=== PATIENT | male | born 1955 | race Caucasian/White ===

== ENCOUNTER 2018-07-23 16:19 | Inpatient (IN) ==
--- NOTE | 2018-07-23 16:48 | Diag Imaging Result Doc PS360 ---
EXAM: CT HEAD W/O CONTRAST INDICATION: STROKE LIKE SYMPTOMS TECHNIQUE: This exam was performed using automated exposure control, adjustment of mA or kV according to patient size, and/or use of iterative reconstruction technique. COMPARISON: 11/02/2015 FINDINGS: There is stable brain atrophy and patchy low attenuation in the periventricular and subcortical white matter suggesting mild microangiopathy. There is no definite acute infarct given the limited sensitivity of CT versus MRI. There is no discrete intracranial mass, mass effect, or intracranial hemorrhage. The surrounding soft tissues and bony structures are essentially unremarkable. IMPRESSION: Stable chronic appearing changes but no definite acute intracranial pathology by CT. Electronically signed by Bassam Andrew 07/23/2018 4:46 PM
[2018-07-23 17:45] LABS: URINE SOURCE CLEAN CATCH
--- NOTE | 2018-07-23 17:45 | Diag Imaging Result Doc PS360 ---
EXAM: CHEST-PORTABLE INDICATION: stroke like symptoms TECHNIQUE: One view COMPARISON: 10/09/2017 FINDINGS: The lungs are grossly clear. There is no discrete pleural fluid collection or pneumothorax. The cardiomediastinal silhouette and central vasculature are grossly unremarkable. IMPRESSION: No evidence of acute pathology by plain radiograph. Electronically signed by Bassam Andrew 07/23/2018 5:43 PM
[2018-07-23 17:55] LABS: BILIRUBIN URINE NEGATIVE (NEGATIVE); BLOOD URINE NEGATIVE (NEGATIVE); COLOR YELLOW; GLUCOSE URINE 70 mg/dL (NEGATIVE); KETONE URINE NEGATIVE (NEGATIVE); LEUKOCYTES URINE NEGATIVE (NEGATIVE); NITRITE URINE NEGATIVE (NEGATIVE); PH URINE 5.5; PROTEIN URINE NEGATIVE (NEGATIVE); TURBIDITY URINE CLEAR (CLEAR); UROBILINOGEN URINE NORMAL (NORMAL)
[2018-07-23 17:57] LABS: UR EPITHELIAL CELLS <10 /HPF (<10); URINE BACTERIA NEGATIVE /HPF; URINE RBC <10 /HPF (<10); URINE WBC <10 /HPF (<10)
[2018-07-23 17:57] LABS: BASO# 0.03 X1000 (0.0-0.2); BASO% 0.3 % (0.0-0.8); EOS# 0.24 X1000 (0.0-0.7); EOS% 2.3 % (0.0-10.0); HEMATOCRIT 51.5 % (42.0-52.0); HEMOGLOBIN 18.5 g/dL (14.0-18.0); IMM GRAN# 0.02 X1000 (0.0-0.04); IMM GRAN% 0.2 % (0.0-0.5); LYMPH# 2.61 X1000 (1.2-3.4); LYMPH% 25.5 % (20.5-51.1); MCH 29.4 PG (27-31); MCHC 35.9 g/dL (33-37); MCV 81.9 FL (81-99); MONO# 0.94 X1000 (0.11-0.59); MONO% 9.2 % (1.7-9.3); MPV 11.3 FL (7.4-10.4); NEUT# 6.41 X1000 (1.4-6.5); NEUT% 62.5 % (42.2-75.2); PLT 204 X1000 (130-400); RBC 6.29 XMIL (4.7-6.1); RDW 13.2 % (11.5-14.5); WBC 10.25 X1000 (4.8-10.8)
--- NOTE | 2018-07-23 18:01 | PROVIDER DOCUMENTATION ---
This chart was entered by Vanessa Stahl Scribe, acting as scribe for Huey Dee DO. HPI-Neurological Disorder - General Source: patient, family - History of Present Illness-Neuro Severity: reports: mild Onset/Duration: reports: 24 hours ago, 3 days ago Timing: reports: still present Context: reports: impaired speech, other (dizzy) Character of Altered Mental Status: reports: N/A Any recent trauma/injury?: reports: none Character of Deficits: reports: impaired speech New weakness or altered sensation location:: reports: none Cognitive Baseline: alert, oriented x3 Gait Baseline: walks without assistance Associated Symptoms: reports: dizziness, slurred speech Similar Symptoms Previously?: Yes (hx CVA) Recently seen or treated by another doctor?: No <Huey Dee - Last Filed: 07/23/18 18:01> <Bonnie Tejada - Last Filed: 07/23/18 20:13> - General Chief Complaint: Stroke-Like Symptoms Stated Complaint: STROKE LIKE SYMPTOMS Time Seen by Provider: 07/23/18 16:27 Allergies/Adverse Reactions: Patient Allergies Allergy/AdvReac Type Severity Reaction Status Date / Time acetaminophen [From [place]] Allergy ITCHING Verified 07/23/18 16:54 hydrocodone bitartrate * Allergy ITCHING Verified 07/23/18 16:54 [From [place]] Home Medications: Home Medication List Medication Instructions Recorded Confirmed Last Taken Type Duloxetine HCl 1 tab PO DAILY 11/24/16 07/23/18 11/24/16 History Glimepiride [Amaryl] 4 mg PO DAILY #30 tab 02/06/17 07/23/18 Unknown Rx ATORVAstatin [Lipitor] 40 mg PO DAILY 07/23/18 07/23/18 Unknown History Gabapentin 1 cap PO QHS 07/23/18 07/23/18 Unknown History Lisinopril/Hydrochlorothiazide 1 tab PO DAILY 07/23/18 07/23/18 Unknown History [Lisinopril-Hctz 20-12.5 mg Tab] Meclizine HCl [Antivert] 25 mg PO Q6H PRN 07/23/18 07/23/18 Unknown History Metoprolol Succinate 1 tab PO DAILY 07/23/18 07/23/18 Unknown History Phenylephrine HCl [Sudafed PE] 10 mg PO PRN PRN 07/23/18 07/23/18 Unknown History Sildenafil Citrate 1 tab PO PRN 07/23/18 07/23/18 Unknown History Sitagliptin Phosphate [Januvia] 1 tab PO DAILY 07/23/18 07/23/18 Unknown History - History of Present Illness-Neuro Nature of Presenting Problem: 62 y/o male presents to ED with slurred speech onset yesterday and dizziness onset 3 days ago. Pt reports he saw PCP for the dizziness 2 days ago and was given antivert. Pt states antivert has not improved his symptoms. Pt reports hx CVA. Pt denies any other symptoms. Pt is alert and oriented x 3. (uHey Dee) Review of Systems - Adult - REVIEW OF SYSTEMS - ADULT Constitutional: denies: chills, fever Eyes: reports: no symptoms reported Ears, Nose, Mouth & Throat: reports: no symptoms reported Cardiovascular: denies: chest pain, palpitations Respiratory: denies: cough, shortness of breath Gastrointestinal: denies: abdominal pain, diarrhea, nausea, vomiting Genitourinary: reports: no symptoms reported Musculoskeletal: denies: back pain, joint pain Integumentary: reports: no symptoms reported Neurological: reports: dizziness/vertigo, slurred speech. denies: seizure Psychiatric: reports: no symptoms reported Endocrine: reports: no symptoms reported Hematologic/Lymphatic: reports: no symptoms reported Allergic/Immunologic: reports: no symptoms reported All Other Systems: Reviewed and Negative <Huey Dee - Last Filed: 07/23/18 18:01> Past History - Adult - PAST MEDICAL HISTORY-ADULT Review of Records: reports: Old Records Reviewed, Nursing Assessment Review, Medications Reviewed Major Childhood Illnesses: reports: denies history Cardiovascular: reports: HTN, hyperlipidemia Respiratory: reports: denies history Gastrointestinal: reports: denies history, GERD Obstetrical/Gynecological: reports: denies history Genitourinary: reports: denies history Musculoskeletal: reports: denies history, other (gout; carpal tunnel) Neurological: reports: CVA (L sided deficits) Psychiatric: reports: anxiety, depression Endocrine/Immune: reports: Diabetes Diabetes Type: Type 2 Other Conditions: reports: denies history - PRIOR SURGERIES/PROCEDURES Surgical/Procedure History: reports: tonsillectomy, other (eye; esophagus) - IMMUNIZATION STATUS Childhood Immunizations: See Nurse Assessment Flu Vaccine: See Nurse Assessment - FAMILY HISTORY Family History: reviewed, not pertinent - SOCIAL HISTORY Smoking: non-smoker Substance Use: none/never Alcohol Use Frequency: rarely Living Situation: family <Huey Dee - Last Filed: 07/23/18 18:01> Physical Exam- Neurological - Physical Exam-Neuro Initial Vital Signs Reviewed: Yes General Appearance: appears well, alert, no apparent distress HENMT: normocephalic/atraumatic, moist mucous membranes, normal ENT inspection Head Injury: no evidence of injury Neck: non-tender, full range of motion Respiratory: chest non-tender, lungs clear, normal breath sounds Cardiovascular: normal peripheral pulses, regular rate, rhythm Abdominal Exam: normal bowel sounds, non tender, soft Extremity: normal range of motion, non-tender, normal gait, normal inspection director cardiology Exam: normal hearing, PERRL, abnormal speech (slurred) Coordination/Gait: normal finger to nose, normal gait Motor/Sensory: no motor deficit, no sensory deficit, no pronator drift Neurologic: director cardiology II-XII nml as tested (Intact), grossly normal, no motor/sensory deficits Integumentary: normal color, warm/dry Psych/Mental Status: normal mood/affect, normal thought content, normal thought process <Huey Dee - Last Filed: 07/23/18 18:01> Progress - PLAN OF CARE/RESULTS Result Diagrams: 07/23/18 17:21 - EKG 1 Time of EKG reading by physician:: 17:47 EKG Read and Signed by:: Huey Dee EKG Interpretation (*Must complete 3 of following elements*): Abnormal Rate: 82 Rhythm: Sinus w/ occasional PVCs [place]: normal QRS: PVC's, other (L anterior fascicular block; inferior infarct) OR Interval: normal ST Wave: normal - XRAY 1 XRAY Study: Chest Impression: Normal (FINDINGS: The lungs are grossly clear. There is no discrete pleural fluid collection or pneumothorax. The cardiomediastinal silhouette and central vasculature are grossly unremarkable. IMPRESSION: No evidence of acute pathology by plain radiograph. Electronically signed by Bassam Andrew 07/23/2018 5:43 PM) - CT/MRI 1 CT Study: Head Impression: Normal (FINDINGS: There is stable brain atrophy and patchy low attenuation in the periventricular and subcortical white matter suggesting mild microangiopathy. There is no definite acute infarct given the limited sensitivity of CT versus MRI. There is no discrete intracranial mass, mass effect, or intracranial hemorrhage. The surrounding soft tissues and bony structures are essentially unremarkable. IMPRESSION: Stable chronic appearing changes but no definite acute intracranial pathology by CT. Electronically signed by Bassam Andrew 07/23/2018 4:46 PM) <Huey Dee - Last Filed: 07/23/18 18:01> - PLAN OF CARE/RESULTS Result Diagrams: 07/23/18 17:21 07/23/18 17:21 - CONSULTS/PCP/HOSPITALIST Notification #1 *Consult/PCP/Hospitalist*: Dr De Dios Consult Disposition: Admit (OK to admit for observation) <Bonnie Tejada - Last Filed: 07/23/18 20:13> - PLAN OF CARE/RESULTS Progress/Plan/Lab Results: Vital Signs - 8 hr 07/23/18 16:21 07/23/18 16:41 07/23/18 17:03 Temperature 96.7 F L Pulse Rate 95 H 87 Respiratory Rate 16 14 Blood Pressure 147/100 131/91 144/87 O2 Sat by Pulse Oximetry 97 97 96 07/23/18 17:33 07/23/18 18:03 07/23/18 18:33 Temperature Pulse Rate 82 85 92 H Respiratory Rate 24 22 24 Blood Pressure 137/93 131/78 123/86 O2 Sat by Pulse Oximetry 97 95 97 07/23/18 19:03 Temperature Pulse Rate 88 Respiratory Rate 21 Blood Pressure 102/76 O2 Sat by Pulse Oximetry 96 Laboratory Results - last 24 hr 07/23/18 07/23/18 07/23/18 16:29 17:21 17:21 WBC 10.25 RBC 6.29 H Hgb 18.5 H Hct 51.5 MCV 81.9 MCH 29.4 MCHC 35.9 RDW Std Deviation 13.2 Plt Count 204 MPV 11.3 H Immature Gran % (Auto) 0.2 Neut % (Auto) 62.5 Lymph % (Auto) 25.5 [place] % (Auto) 9.2 Eos % (Auto) 2.3 Baso % (Auto) 0.3 Immature Gran # (Auto) 0.02 Neut # (Auto) 6.41 Lymph # (Auto) 2.61 [place] # (Auto) 0.94 H Eos # (Auto) 0.24 Baso # (Auto) 0.03 PT INR PTT (Actin FS) Sodium 139 Potassium 4.3 Chloride 101 Carbon Dioxide 24 L Anion Gap 14 BUN 17 Creatinine 1.1 Estimated GFR/1.73 m2 > 60 BUN/Creatinine Ratio 15 Glucose 209 H POC Glucose 241 H Calculated Osmolality 285 Calcium 10.0 Magnesium Total Bilirubin 0.51 AST 12 ALT 19 Alkaline Phosphatase 72 Troponin T Total Protein 7.4 Albumin 4.3 Globulin 3.1 Albumin/Globulin Ratio 1.4 Urine Source Urine Color Urine Turbidity Urine pH Ur Specific [place] Urine Protein Ur Glucose (Stick) Ur Ketones (Stick) Urine Blood Urine Nitrite Urine Bilirubin Urobilinogen Dipstick Urine Leukocytes Urine WBC (Auto) Urine RBC (Auto) U Epithel Cells (Auto) Urine Bacteria (Auto) 07/23/18 07/23/18 07/23/18 17:21 17:21 17:21 WBC RBC Hgb Hct MCV MCH MCHC RDW Std Deviation Plt Count MPV Immature Gran % (Auto) Neut % (Auto) Lymph % (Auto) [place] % (Auto) Eos % (Auto) Baso % (Auto) Immature Gran # (Auto) Neut # (Auto) Lymph # (Auto) [place] # (Auto) Eos # (Auto) Baso # (Auto) PT 13.0 INR 0.91 PTT (Actin FS) 29.9 Sodium Potassium Chloride Carbon Dioxide Anion Gap BUN Creatinine Estimated GFR/1.73 m2 BUN/Creatinine Ratio Glucose POC Glucose Calculated Osmolality Calcium Magnesium 1.9 Total Bilirubin AST ALT Alkaline Phosphatase Troponin T < 0.010 Total Protein Albumin Globulin Albumin/Globulin Ratio Urine Source Urine Color Urine Turbidity Urine pH Ur Specific [place] Urine Protein Ur Glucose (Stick) Ur Ketones (Stick) Urine Blood Urine Nitrite Urine Bilirubin Urobilinogen Dipstick Urine Leukocytes Urine WBC (Auto) Urine RBC (Auto) U Epithel Cells (Auto) Urine Bacteria (Auto) 07/23/18 07/23/18 17:40 17:42 WBC RBC Hgb Hct MCV MCH MCHC RDW Std Deviation Plt Count MPV Immature Gran % (Auto) Neut % (Auto) Lymph % (Auto) [place] % (Auto) Eos % (Auto) Baso % (Auto) Immature Gran # (Auto) Neut # (Auto) Lymph # (Auto) [place] # (Auto) Eos # (Auto) Baso # (Auto) PT INR PTT (Actin FS) Sodium Potassium Chloride Carbon Dioxide Anion Gap BUN Creatinine Estimated GFR/1.73 m2 BUN/Creatinine Ratio Glucose POC Glucose 153 H Calculated Osmolality Calcium Magnesium Total Bilirubin AST ALT Alkaline Phosphatase Troponin T Total Protein Albumin Globulin Albumin/Globulin Ratio Urine Source CLEAN CATCH Urine Color YELLOW Urine Turbidity CLEAR Urine pH 5.5 Ur Specific [place] 1.020 Urine Protein NEGATIVE Ur Glucose (Stick) 70 A Ur Ketones (Stick) NEGATIVE Urine Blood NEGATIVE Urine Nitrite NEGATIVE Urine Bilirubin NEGATIVE Urobilinogen Dipstick NORMAL Urine Leukocytes NEGATIVE Urine WBC (Auto) <10 Urine RBC (Auto) <10 U Epithel Cells (Auto) <10 Urine Bacteria (Auto) NEGATIVE Orders Category Date Time Status Cardiac Monitoring DIRECTED Care 07/23/18 17:00 Active Finger Stick Blood Sugar (ED) DIRECTED Care 07/23/18 17:00 Active Misc. NRSG Communication Order DIRECTED Care 07/23/18 17:00 Active Saline Loc NOW Care 07/23/18 17:00 Active Update & Confirm Home Medicati ROUTINE Care 07/23/18 19:57 Active CHEST-PORTABLE [RAD] Stat Exams 07/23/18 17:[address] HEAD W/O CONTRAST [CT] Stat Exams 07/23/18 16:25 Completed CBC WITH ELECTRONIC DIFF [HEME] Stat Lab 07/23/18 17:21 Completed COMPREHENSIVE METABOLIC PANEL [CHEM] Stat Lab 07/23/18 17:21 Completed MAGNESIUM [CHEM] Stat Lab 07/23/18 17:21 Completed PROTIME WITH INR [COAG] Stat Lab 07/23/18 17:21 Completed PTT [COAG] Stat Lab 07/23/18 17:21 Completed TROPONIN T Stat Lab 07/23/18 17:21 Completed URINALYSIS W/POSS RFLX CULT [URINALYSIS] Stat Lab 07/23/18 17:42 Completed URINE DRUG SCREEN Stat Lab 07/23/18 17:42 Received EKG [EKG] Stat Ther 07/23/18 17:00 Ordered Transfer/Admit Order [TRANSFER] Routine Transfer 07/23/18 19:58 Ordered Departure <Huey Dee - Last Filed: 07/23/18 18:01> - Departure Date of Disposition Decision: 07/23/18 Time of Disposition Decision: 19:34 Certified Medical Emergency: Emergent - Critical Care Note This patient required my direct & personal management of CC.: No <Bonnie Tejada - Last Filed: 07/23/18 20:13> - Departure DIAGNOSIS: Slurred speech Disposition: ADMITTED INPATIENT 09 Condition: Good Referrals and Follow-Ups: Shannon An CRNP [Primary Care Provider] - Attestation - Physician/ JAMES Attestation Patient care was provided by Advanced Practice Provider:: No The physician spent face to face time with patient:: Yes Advanced Practice Provider documentation review:: Supervising physician onsite and consulted in the evaluation and care of this patient. The physician did have a face to face encounter with the patient. <Huey Dee - Last Filed: 07/23/18 18:01> - Physician/ JAMES Attestation Patient care was provided by Advanced Practice Provider:: No The physician spent face to face time with patient:: Yes Advanced Practice Provider documentation review:: Supervising physician onsite and consulted in the evaluation and care of this patient. The physician did have a face to face encounter with the patient. <Bonnie Tejada - Last Filed: 07/23/18 20:13> - NIH Stroke Scale Level of Consciousness: 0-Alert LOC Questions (ask month and age): 2-Both Incorrect LOC Commands (ask to open & close eyes;make a fist, let go): 2-Both Incorrect Best Gaze (horizontal eye movement): 0-Normal Visual (use finger movement, counting or visual threat): 0-No Visual Loss Facial Palsy (show teeth or raise eyebrows & close eyes tght: 0-Symmetrical Movement Motor Function-left arm: 0-Normal Motor Function-right arm: 0-Normal Motor Function-left le-Normal Motor Function-right le-Normal Limb Ataxia(hoelaq-[id number]-[id number], or heel to barriga): 0-No Ataxia Sensory(pin prick to face,arms,trunk,legs-compare side/side): 0-No Ataxia Best Language(name item/read sentence.Ex-Down to Earth): 1-Mild to Moderate Aphasia Dysarthria(Pt read words or say words Ex.Mama,Tip-Top,Thanks: 1-Mild-Mod Slurring Words Extinction and Inattention: 0-Normal Modified [place] Score Criteria: 2-slight disability <Huey Dee - Last Filed: 07/23/18 18:01> This chart was documented by the indicated scribe, (Vanessa Stahl, Marcelino) and accurately reflects the services I performed and decisions made by , Huey Dee DO, as attested by the provider's signature.
[2018-07-23 18:05] LABS: AGAP 14; ALB/GLOB RATIO 1.4; ALBUMIN 4.3 g/dL (3.5-5.0); ALKALINE PHOSPHATASE 72 U/L (32-122); BUN 17 mg/dL (8-22); CHLORIDE 101 mmol/L (98-107); COSMO 285; CREATININE 1.1 mg/dL (0.7-1.2); ESTIMATED GFR > 60; GLUCOSE 209 mg/dL (70-104); GOT 12 U/L (10-34); GPT 19 U/L (10-44); POTASSIUM 4.3 mmol/L (3.5-5.1); SODIUM 139 mmol/L (136-145); TCO2 24 mmol/L (25-35); TOTAL BILIRUBIN 0.51 mg/dL (0.20-1.00); TOTAL PROTEIN 7.4 g/dL (6.3-8.3)
[2018-07-23 18:15] LABS: INR 0.91
[2018-07-23 18:27] LABS: PTT 29.9 Seconds (22.3-41.8)
[2018-07-23 20:17] LABS: UR AMPHETAMINES QUAL NONE DETECTED (NONE DETECT); UR BARBITUATES QUAL NONE DETECTED (NONE DETECT); UR BENZODIAZEPIN QUAL NONE DETECTED (NONE DETECT); UR CANNABINOIDS QUAL NONE DETECTED (NONE DETECT); UR COCAINE QUAL NONE DETECTED (NONE DETECT); UR METHADONE QUAL NONE DETECTED (NONE DETECT); UR OPIATES QUAL NONE DETECTED (NONE DETECT); UR OXYCODONE QUAL NONE DETECTED (NONE DETECT); UR PCP QUAL NONE DETECTED (NONE DETECT)
[2018-07-23] MEDS ORDERED: ZOFRAN IV PRN (20:38)
[2018-07-23] MEDS ORDERED: TYLENOL PO PRN (20:38)
[2018-07-23 20:57] LABS: HEMOGLOBIN A1C 7.4 % (4.8-6.0)
[2018-07-23] MEDS ORDERED: NS 500 ML IV ONE (21:22)
[2018-07-23] MEDS: HUMALOG SUBQ SCH (22:11)
[2018-07-23] MEDS: LOVENOX SUBQ SCH (22:11)
[2018-07-23] MEDS: LIPITOR PO SCH (22:11)
--- NOTE | 2018-07-23 22:45 | HISTORY AND PHYSICAL ---
CHIEF COMPLAINT: Slurred speech. PRIMARY CARE PROVIDER: Shannon An. HISTORY OF PRESENT ILLNESS: A 62-year-old male with a history of CVA, hypertension, diabetes mellitus type 2, hyperlipidemia, esophageal strictures and intermittent angina, comes in after having dizziness for the past 3 days and slurring of his speech for the past day and a half. Apparently saw his primary care provider 2 days ago about the dizziness and she gave him something for vertigo. They stated that the slurring of speech has continued so he came into the emergency room to be evaluated. A CT showed chronic microvascular changes, but no acute intracranial process. He will be admitted in observation status for further evaluation and treatment. PAST MEDICAL HISTORY: See HPI. PREVIOUS SURGICAL HISTORY: Denies. ALLERGIES: [place]. HOME MEDICATIONS: Neurontin 400 mg p.o. at bedtime. Lipitor 40 mg p.o. daily, however, the patient denies that he has been taking this. Lisinopril/hydrochlorothiazide 20/12.5, meclizine 25 p.o. q.6 p.r.n., metoprolol 25 mg 1 p.o. daily, Sudafed 10 mg p.o. p.r.n., sildenafil 100 mg p.o. p.r.n., Januvia 100 mg p.o. daily, duloxetine 60 mg p.o. daily, Amaryl 4 mg p.o. daily. SOCIAL HISTORY: No alcohol, tobacco or illicit drugs. Is retired. FAMILY HISTORY: Diabetes mellitus type 2, and cancer and heart disease in his father but he did not pass away until he was 81. REVIEW OF SYSTEMS: Fourteen point review of systems conducted with the patient. Pertinent positives listed above in the HPI. All other systems reviewed and found to be negative. PHYSICAL EXAMINATION: VITAL SIGNS: Temperature 97.7, pulse 80, respirations 18, blood pressure 107/84, oxygen saturation 97% on room air. GENERAL: Pleasant 62-year-old male lying in the ER stretcher, answers all questions appropriately, is alert and oriented times 3. HEENT: Head is atraumatic, normocephalic. Pupils equal, round, react to light. Extraocular eye movement intact. Sclerae are anicteric. Conjunctivae is pink. Oral mucosa is moist. NECK: Supple. No JVD. No thyromegaly. Trachea is midline. No cervical lymphadenopathy. CARDIAC: S1, S2 appreciated. No murmurs, gallops, rubs. LUNGS: Clear to auscultation bilaterally. No rhonchi, wheezes or rales. Symmetrical rise and fall with respirations. ABDOMEN: Soft, nondistended, nontender. Bowel sounds present all 4 quadrants, normoactive. No pulsatile mass. No organomegaly. EXTREMITIES: No clubbing, cyanosis or edema. Two-plus pedal pulses bilaterally. GENITOURINARY: No bladder distention. Patient voids. Otherwise deferred. NEUROLOGICAL: Alert and oriented times 3. Cranial nerves 2 through 12 appear to be grossly intact. Patient does have very mild left-sided weakness compared to right from previous CVA, but again, it is almost not noticeable. The patient also feels that he is slurring his speech. However, I could not tell that on examination. DIAGNOSTIC DATA: CT of the head shows chronic microvascular changes. Chest x- ray: No acute process. LABORATORY DATA: Hemoglobin 18.5. Hematocrit 51.5. Coagulation studies within normal limits. BUN 17. Creatinine 1.1. Glucose 209. Hemoglobin A1c 7.4. Urine unremarkable. Toxicology screen negative. ASSESSMENT AND PLAN: 1. Transient ischemic attack versus cerebrovascular accident. A CT scan just shows chronic changes. We will order MRI, echo and carotid Doppler tomorrow. Direct lipid profile. Start patient back on atorvastatin. 2. Hypertension. Hold antihypertensives. Allow for permissive hypertension until CVA is ruled out. These can be restarted when appropriate. 3. Diabetes mellitus type 2. Hold oral medications. Start on sliding scale insulin with fingerstick blood sugars q.a.c and at bedtime. Patient's hemoglobin A1c is elevated. His medications may need to be changed slightly. 4. Mild fluid volume depletion. Give a 500 mL bolus and then normal saline at 75 mL an hour. Further recommendations per patient clinical course. Dictated by JULIAN Barnes for Carlos De Dios MD I have performed a face to face diagnostic evaluation. Labs and Imaging- reviewed. Exam Chest- clear, Neuro- speech sluggish. A/P- TIA- r/o CVA- Admit, neuroconsult, stroke work up. MRI of Brain Dr. De Dios cc: JULIAN Barnes MD Stephanie Weems, CRNP MTDD
[2018-07-24] MEDS: NS 1,000 ML IV SCH (00:07)
[2018-07-24 06:53] LABS: BASO# 0.02 X1000 (0.0-0.2); BASO% 0.2 % (0.0-0.8); EOS# 0.28 X1000 (0.0-0.7); HEMATOCRIT 49.4 % (42.0-52.0); HEMOGLOBIN 17.6 g/dL (14.0-18.0); IMM GRAN# 0.03 X1000 (0.0-0.04); IMM GRAN% 0.3 % (0.0-0.5); LYMPH# 2.85 X1000 (1.2-3.4); MCH 29.7 PG (27-31); MCHC 35.6 g/dL (33-37); MCV 83.4 FL (81-99); MONO# 0.98 X1000 (0.11-0.59); MONO% 10.7 % (1.7-9.3); MPV 11.2 FL (7.4-10.4); NEUT# 5.03 X1000 (1.4-6.5); NEUT% 54.8 % (42.2-75.2); PLT 189 X1000 (130-400); RBC 5.92 XMIL (4.7-6.1); RDW 13.2 % (11.5-14.5); WBC 9.19 X1000 (4.8-10.8)
[2018-07-24 07:10] LABS: AGAP 12; BUN 14 mg/dL (8-22); CHLORIDE 103 mmol/L (98-107); COSMO 283; ESTIMATED GFR > 60; GLUCOSE 115 mg/dL (70-104); POTASSIUM 4.1 mmol/L (3.5-5.1); SODIUM 141 mmol/L (136-145); TCO2 26 mmol/L (25-35)
[2018-07-24] MEDS: HUMALOG SUBQ SCH ×4 (07:32→23:01)
[2018-07-24] MEDS ORDERED: ATIVAN IV PRN (10:21)
[2018-07-24] MEDS: LIPITOR PO SCH (11:47)
[2018-07-24] MEDS: CYMBALTA PO SCH (11:47)
[2018-07-24] MEDS: ASPIRIN PO SCH (11:48)
--- NOTE | 2018-07-24 13:03 | Diag Imaging Result Doc PS360 ---
EXAM: MRI BRAIN W/O CONTRAST HISTORY: tia/cva TECHNIQUE: MRI brain without contrast. Axial, sagittal, and coronal images obtained in multiple sequences. COMPARISON: CT from 07/23/2018 FINDINGS: There is a focal area of increased signal in the left periventricular location measuring approximately 9 x 16 mm consistent with a recent infarct. There are minimal chronic microvascular ischemic changes. No mass or midline shift. No hydrocephalus. Normal orbits. No sinus opacification and no air-fluid levels. IMPRESSION: Small recent left parietal infarct. This report was discussed with nurse Jc on the fourth floor on 07/24/2018 at 1:00 PM and was readback. Electronically signed by Sourav Godinez 07/24/2018 1:01 PM
[2018-07-24] MEDS: TOPROL XL PO SCH (15:07)
--- NOTE | 2018-07-24 15:13 | PROGRESS NOTE ---
DATE: 07/24/2018 INTERVAL HISTORY: The patient still feels that he has to concentrate to get words out clearly. No new neurologic symptoms or new complaints. No acute events overnight. REVIEW OF SYSTEMS: Twelve point review of systems negative except as per interval history. LABS: CBC unremarkable. Basic metabolic panel unremarkable aside from glucose 115 to 168. Triglycerides 201, LDL 84, HDL 39. IMAGING: Brain MRI with small recent left parietal infarct. VITALS: T-max 98.6, pulse 80, respirations 18, blood pressure 112/80, O2 sat 99% on room air. PHYSICAL EXAMINATION: General: No acute distress. Vitals: As above. HEENT: Normocephalic, atraumatic. Moist mucous membranes. No cervical adenopathy. Cardiovascular: Regular rate and rhythm. No murmurs, rubs or gallops. Pulmonary: Clear to auscultation bilaterally. No wheezing, rales or rhonchi. Abdomen: Soft, nontender, nondistended. Bowel sounds positive. Extremities: Peripheral pulses intact. No clubbing, cyanosis or edema. Neurologic: Speech is slightly slow, but clear. Cranial nerves appeared grossly intact. No facial asymmetry. Pupils equal, round, reactive to light. Subtle left-sided weakness stable from previous. Psychiatric: Normal mood and affect. Awake, alert, oriented x 3. Skin: No new rashes or lesions identified. ASSESSMENT AND PLAN: 1. CVA. The patient complaining of subtle slurring of speech. Speech was pretty clear, but he does seem to have to stop and think about the word and focus on enunciating. The patient placed on aspirin and statin. Carotid Dopplers pending. Speech therapy evaluation pending. Likely discharge home tomorrow if no other major pathology is identified. 2. Hypertension. Allowing permissive hypertension for today. We will likely restart home medications tomorrow. 3. Diabetes, reasonable control of blood sugar on current regimen. Continue to monitor. 4. Hyperlipidemia. Has been on statin in the past but has not taken Reglan for quite some time. Restarted on atorvastatin. 5. History of esophageal stricture. No dysphagia currently.
--- NOTE | 2018-07-24 16:46 | ECHO REPORT ---
ORDER DATE: 07/24/2018 ECHOCARDIOGRAPHIC MEASUREMENTS: 1. Interventricular septum 1.1. 2. Left ventricular posterior wall 1.1. 3. Diastolic diameter 4.1. 4. Left atrium 3. 5. Aorta 3.6. SUMMARY: 1. Tricuspid valve was normal. 2. Aortic valve leaflets are trileaflet. 3. Pulmonic valve was normal . 4. Mitral valve was normal. 5. Normal left ventricular cavity size. 6. Estimated ejection fraction of 60%. 7. There is mild mitral regurgitation. 8. Mild diastolic dysfunction. 9. There is peak velocity across the aortic valve less than 2 m/sec. 10. There is no aortic stenosis or regurgitation. 11. There is mild tricuspid regurgitation. 12. Peak velocity across the tricuspid valve was 2.2 m/sec. 13. There is no pericardial effusion or obvious intracardiac mass or thrombus seen. cc: MD Isma Gerber CRNP
[2018-07-24] MEDS: LOVENOX SUBQ SCH (21:43)
[2018-07-25] MEDS: NS 1,000 ML IV SCH (02:04)
[2018-07-25] MEDS: HUMALOG SUBQ SCH ×2 (06:50→11:46)
[2018-07-25] MEDS: TOPROL XL PO SCH (08:57)
[2018-07-25] MEDS: ASPIRIN PO SCH (08:57)
[2018-07-25] MEDS: LIPITOR PO SCH (08:57)
[2018-07-25] MEDS: CYMBALTA PO SCH (08:57)
[2018-07-25] MEDS ORDERED: CYMBALTA PO SCH (11:15)
[2018-07-25] MEDS ORDERED: [UNRECOGNIZED DRUG - OTHER] PO PRN (11:15)
[2018-07-25] MEDS ORDERED: PRINZIDE 20/12.5MG PO SCH (11:15)
[2018-07-25 11:37] VITALS: BP 146/85
--- NOTE | 2018-07-25 13:47 | DISCHARGE SUMMARY ---
DIAGNOSES: 1. Cerebrovascular accident. 2. Hypertension. 3. Diabetes mellitus. 4. Hyperlipidemia. 5. History of esophageal stricture. DIAGNOSTICS: 1. On 07/23/2018, CT of the head revealed stable chronic appearing changes but no definite acute intracranial pathology. 2. Chest x-ray revealed no evidence of acute pathology. 3. MRI of the brain revealed a small recent left parietal infarct. 4. Echocardiogram, normal left ventricular cavity size with ejection fraction of 60%. There is mild diastolic dysfunction. No pericardial effusion or obvious intracardiac mass or thrombus seen. HOSPITAL COURSE: Mr. Navarro presented to the emergency room complaining of slurred speech that had been present for a day and a half. He had seen his primary care physician 2 days prior for vertigo. Was diagnosed with vertigo and given medications for this. He was found to have a parietal infarct. He does have a subtle slurring of speech complaint remaining. He does have to stop and think about words and focus on enunciation. He had discontinued his aspirin and statin on his own in the past. We have restarted. He will be discharged on these. Blood sugars stayed in the 100s to low 200 range. He was noted to have an A1c of 7.4. We initially allowed for permissive hypertension. Pressures were in the 130s-140s/80s to primarily where they have remained. DISCHARGE VITAL SIGNS: Blood pressure is 146/85, with a heart rate of 79, respirations 16, temperature is 97.9 degrees oral, with room air saturations 96-98%. DISCHARGE PHYSICAL EXAMINATION: Cardiovascular: Regular rate and rhythm. S1 and S2 are appreciated. He has no lower extremity edema. Calves are nontender bilateral. Peripheral pulses palpable x4 extremities. Pulmonary: Breath sounds clear. No increased work of breathing noted. Chest rises and falls symmetrically with respirations. Chest wall is nontender to palpation. Gastrointestinal: Abdomen is soft, nontender, nondistended with bowel sounds in all 4 quadrants. Neurologic: He is alert and oriented x3. Forehead is spared. He has no facial droop. No tongue or uvula deviation. Equal nasal flaring. Shoulder shrug is equal. He has no plantar drift. Extremities: There is 5/5 strength x4. Event Decorator are strong and equal. His gait is steady. DISCHARGE MEDICATIONS: Aspirin 81 mg p.o. daily, Lipitor 40 mg p.o. at bedtime, duloxetine 160 mg p.o. daily, Amaryl 4 mg p.o. daily, lisinopril/hydrochlorothiazide 20/12.5 daily, metoprolol succinate 25 mg p.o. daily, Sudafed PE 10 mg p.o. p.r.n. nasal congestion, sildenafil 1 tablet p.r.n. as directed, Januvia 100 mg p.o. daily. FOLLOWUP: 1. He is to follow up with his primary care provider, Shannon An, within the next week, sooner if needed. 2. He has been instructed to return to the ER or call to be seen sooner for any syncope, dizziness, any chest pain, palpitations, shortness of breath, cough, fever, chills, temperature greater than 101, any recurring headache, slurred speech, change in mentation, change in gait, any extremity weakness, or any questions or concerns that he may have. He is being discharged home in stable condition with family members. TIME SPENT: This is a greater than a 30 minute discharge. Dictated by JULIAN Miller for Yinka Garcia MD cc: JULIAN Miller
== END 2018-07-25 13:52 | disposition home or self-care (01) | DRG 66 ==
LOC: ED 16:19 → SUATTDRO 20:19 → 4N 20:19
PROVIDERS: ATTEND Internal Medicine
CPT/HCPCS: 70450; 70551; 71010; 71045; 80048; 80053; 80061; 80101; 80301; 80307; 80324; 80345; 80346; 80353; 80358; 80361; 80365; 81001; 82948; 83036; 83721; 83735; 83992; 84484; 85025; 85610; 85730; 93005; 93306; 93880; 99285; A9270; G0431; G0434; G0479; G0480; J1650; J1815; J2060; J2405; J7030; J7040; XXXXX

== ENCOUNTER 2018-07-28 15:08 | Inpatient (IN) ==
--- NOTE | 2018-07-28 15:30 | Diag Imaging Result Doc PS360 ---
EXAM: CT HEAD W/O CONTRAST HISTORY: STROKE LIKE SYMPTOMS TECHNIQUE: CT head without contrast COMPARISON: MRI 07/24/2018 FINDINGS: No parenchymal hemorrhage. No epidural or subdural hematoma. No subarachnoid hemorrhage. There is a small hypodense area in the left periventricular location measuring approximately 1.3 cm. No mass identified on this noncontrasted exam. No hydrocephalus. No sinus opacification. IMPRESSION: Small recent infarct seen on the recent MRI. This exam was performed using automated exposure control, adjustment of mA or kV according to patient size, and/or use of iterative reconstruction technique. Electronically signed by Sourav Godinez 07/28/2018 3:28 PM
[2018-07-28] MEDS ORDERED: NS 1,000 ML IV ONE (15:58)
[2018-07-28] MEDS ORDERED: ATIVAN IV ONE ×2 (15:59→19:18)
[2018-07-28] MEDS ORDERED: ATIVAN IM ONE (16:05)
--- NOTE | 2018-07-28 16:40 | Diag Imaging Result Doc PS360 ---
EXAM: CHEST-2 VIEWS 07/28/2018 HISTORY: stoke like symptoms TECHNIQUE: PA and lateral chest COMMENT: There is no evidence of acute cardiac or pulmonary disease. There appears to be a minimal amount of fibrosis in the lingula or lateral anterior lower lobe on the left. This has not changed since 10/09/2017. IMPRESSION: Stable chest. Electronically signed by Ancelmo Dunn 07/28/2018 4:37 PM
[2018-07-28 17:39] LABS: BASO# 0.04 X1000 (0.0-0.2); BASO% 0.2 % (0.0-0.8); EOS# 0.08 X1000 (0.0-0.7); EOS% 0.4 % (0.0-10.0); HEMATOCRIT 53.2 % (42.0-52.0); HEMOGLOBIN 19.6 g/dL (14.0-18.0); IMM GRAN# 0.05 X1000 (0.0-0.04); IMM GRAN% 0.3 % (0.0-0.5); LYMPH# 2.47 X1000 (1.2-3.4); MCH 29.8 PG (27-31); MCHC 36.8 g/dL (33-37); MCV 80.9 FL (81-99); MONO# 1.88 X1000 (0.11-0.59); MONO% 9.9 % (1.7-9.3); MPV 11.7 FL (7.4-10.4); NEUT# 14.44 X1000 (1.4-6.5); NEUT% 76.2 % (42.2-75.2); PLT 228 X1000 (130-400); RBC 6.58 XMIL (4.7-6.1); RDW 13.3 % (11.5-14.5); WBC 18.96 X1000 (4.8-10.8)
[2018-07-28 17:59] LABS: URINE SOURCE CLEAN CATCH
[2018-07-28 18:12] LABS: BILIRUBIN URINE NEGATIVE (NEGATIVE); BLOOD URINE TRACE (NEGATIVE); COLOR YELLOW; GLUCOSE URINE TRACE mg/dL (NEGATIVE); KETONE URINE TRACE mg/dL (NEGATIVE); LEUKOCYTES URINE NEGATIVE (NEGATIVE); NITRITE URINE NEGATIVE (NEGATIVE); PROTEIN URINE NEGATIVE (NEGATIVE); SP GRAVITY URINE 1.021; TURBIDITY URINE CLEAR (CLEAR); UROBILINOGEN URINE NORMAL (NORMAL)
[2018-07-28 18:13] LABS: UR EPITHELIAL CELLS <10 /HPF (<10); URINE BACTERIA NEGATIVE /HPF; URINE RBC <10 /HPF (<10); URINE WBC <10 /HPF (<10)
--- NOTE | 2018-07-28 18:18 | PROVIDER DOCUMENTATION ---
This chart was entered by Vanessa Stahl Scribe, acting as scribe for Primo Cheema MD. HPI-Neurological Disorder - General Chief Complaint: Stroke-Like Symptoms Stated Complaint: STROKE SYMPTOMS Time Seen by Provider: 07/28/18 15:27 Source: patient, family, old records Allergies/Adverse Reactions: Patient Allergies Allergy/AdvReac Type Severity Reaction Status Date / Time acetaminophen [From [place]] Allergy ITCHING Verified 07/28/18 16:19 hydrocodone bitartrate * Allergy ITCHING Verified 07/28/18 16:19 [From [place]] Home Medications: Home Medication List Medication Instructions Recorded Confirmed Last Taken Type Duloxetine HCl 1 tab PO DAILY 11/24/16 07/28/18 07/28/18 History Glimepiride [Amaryl] 4 mg PO DAILY #30 tab 02/06/17 07/28/18 07/28/18 Rx Lisinopril/Hydrochlorothiazide 1 tab PO DAILY 07/23/18 07/28/18 07/28/18 History [Lisinopril-Hctz 20-12.5 mg Tab] Meclizine HCl [Antivert] 25 mg PO Q6H PRN 07/23/18 07/28/18 2 Days Ago History ~07/26/18 Sitagliptin Phosphate [Januvia] 1 tab PO DAILY 07/23/18 07/28/18 07/28/18 History Aspirin [Aspir-Low] 81 mg PO DAILY #30 tablet. 07/25/18 07/28/18 07/28/18 Rx - History of Present Illness-Neuro Nature of Presenting Problem: 62 y/o male presents to ED with slurred speech and weakness onset 3 days ago. Pt reports he has had severe leg cramps and spasms since last night. Pt states he was discharged from the hospital on Tuesday after being admitted for TIA 07/23. Pt reports he has not felt normal since before his admission. Pt has hx CVA. Pt is alert and oriented. Severity: reports: mild Onset/Duration: reports: 3 days ago, last night Timing: reports: still present Context: reports: impaired speech, other (weakness) Character of Altered Mental Status: reports: N/A Any recent trauma/injury?: reports: none Character of Deficits: reports: new weakness, impaired speech New weakness or altered sensation location:: reports: general (diffuse) Cognitive Baseline: alert, oriented x3 Gait Baseline: walks without assistance Associated Symptoms: reports: slurred speech, weakness, other (leg cramps/spasms) Similar Symptoms Previously?: Yes Recently seen or treated by another doctor?: Yes (admitted for TIA 5 days ago) Review of Systems - Adult - REVIEW OF SYSTEMS - ADULT Constitutional: denies: chills, fever Eyes: reports: no symptoms reported Ears, Nose, Mouth & Throat: reports: no symptoms reported Cardiovascular: denies: chest pain, palpitations Respiratory: denies: cough, shortness of breath Gastrointestinal: denies: abdominal pain, diarrhea, nausea, vomiting Genitourinary: reports: no symptoms reported Musculoskeletal: reports: other (leg cramps/spasms). denies: back pain, joint pain Integumentary: reports: no symptoms reported Neurological: reports: slurred speech, other (weakness). denies: dizziness/vertigo, seizure Psychiatric: reports: no symptoms reported Endocrine: reports: no symptoms reported Hematologic/Lymphatic: reports: no symptoms reported Allergic/Immunologic: reports: no symptoms reported All Other Systems: Reviewed and Negative Past History - Adult - PAST MEDICAL HISTORY-ADULT Review of Records: reports: Old Records Reviewed, Nursing Assessment Review, Medications Reviewed Major Childhood Illnesses: reports: denies history Cardiovascular: reports: HTN, hyperlipidemia Respiratory: reports: denies history Gastrointestinal: reports: denies history, GERD Obstetrical/Gynecological: reports: denies history Genitourinary: reports: denies history Musculoskeletal: reports: denies history, other (gout; carpal tunnel) Neurological: reports: CVA (L sided deficits) Psychiatric: reports: anxiety, depression Endocrine/Immune: reports: Diabetes Other Conditions: reports: denies history - PRIOR SURGERIES/PROCEDURES Surgical/Procedure History: reports: tonsillectomy, other (eye; esophagus) - IMMUNIZATION STATUS Childhood Immunizations: See Nurse Assessment Flu Vaccine: See Nurse Assessment - FAMILY HISTORY Family History: reviewed, not pertinent - SOCIAL HISTORY Smoking: non-smoker Substance Use: none/never Alcohol Use Frequency: rarely Living Situation: family Physical Exam- Neurological - Physical Exam-Neuro Initial Vital Signs Reviewed: Yes General Appearance: appears well, alert, no apparent distress Eye Exam: bilateral eye: normal inspection, PERRL, EOMI HENMT: normocephalic/atraumatic, moist mucous membranes, normal ENT inspection Head Injury: no evidence of injury Neck: non-tender, full range of motion Respiratory: chest non-tender, lungs clear, normal breath sounds Cardiovascular: normal peripheral pulses, regular rate, rhythm Abdominal Exam: normal bowel sounds, non tender, soft Extremity: normal range of motion, non-tender, normal gait, normal inspection, other (muscle spasms of bilateral lower extremities) hopper feeder Exam: normal hearing, normal speech, PERRL Coordination/Gait: normal finger to nose, normal gait Motor/Sensory: no motor deficit, no sensory deficit, no pronator drift Neurologic: hopper feeder II-XII nml as tested (Intact), grossly normal, no motor/sensory deficits Integumentary: normal color, warm/dry Psych/Mental Status: normal mood/affect, normal thought content, normal thought process Progress - PLAN OF CARE/RESULTS Progress/Plan/Lab Results: Vital Signs - 8 hr 07/28/18 15:10 07/28/18 15:40 07/28/18 15:50 Temperature Pulse Rate 116 H 119 H 122 H Respiratory Rate 16 27 H 24 Blood Pressure 132/92 177/102 O2 Sat by Pulse Oximetry 94 L 92 L 92 L 07/28/18 16:00 07/28/18 16:10 07/28/18 16:26 Temperature Pulse Rate 130 H 118 H 124 H Respiratory Rate 32 H 26 H 15 Blood Pressure O2 Sat by Pulse Oximetry 95 92 L 07/28/18 16:30 07/28/18 16:34 07/28/18 16:40 Temperature Pulse Rate 124 H 124 H 119 H Respiratory Rate 25 H 27 H 26 H Blood Pressure 131/89 O2 Sat by Pulse Oximetry 92 L 92 L 94 L 07/28/18 16:50 07/28/18 17:00 07/28/18 17:01 Temperature Pulse Rate 136 H 128 H 129 H Respiratory Rate 37 H 25 H 25 H Blood Pressure 144/109 O2 Sat by Pulse Oximetry 91 L 91 L 93 L 07/28/18 17:10 07/28/18 17:20 07/28/18 17:30 Temperature Pulse Rate 124 H 130 H 123 H Respiratory Rate 28 H 20 22 Blood Pressure O2 Sat by Pulse Oximetry 95 92 L 93 L 07/28/18 17:40 07/28/18 17:50 07/28/18 18:00 Temperature Pulse Rate 135 H 127 H 146 H Respiratory Rate 30 H 27 H 18 Blood Pressure O2 Sat by Pulse Oximetry 89 L 94 L 95 07/28/18 18:02 07/28/18 18:09 07/28/18 18:10 Temperature Pulse Rate 130 H 137 H 136 H Respiratory Rate 28 H 26 H 15 Blood Pressure 139/103 105/84 O2 Sat by Pulse Oximetry 91 L 93 L 94 L 07/28/18 18:20 07/28/18 18:30 07/28/18 18:31 Temperature Pulse Rate 127 H 144 H 120 H Respiratory Rate 31 H 27 H 18 Blood Pressure 137/94 O2 Sat by Pulse Oximetry 92 L 94 L 91 L 07/28/18 18:40 07/28/18 18:50 07/28/18 18:54 Temperature 98 F Pulse Rate 128 H 127 H 125 H Respiratory Rate 19 18 18 Blood Pressure 137/94 O2 Sat by Pulse Oximetry 95 93 L 95 07/28/18 19:00 07/28/18 19:01 07/28/18 19:10 Temperature Pulse Rate 117 H 118 H 122 H Respiratory Rate 17 22 20 Blood Pressure 155/102 O2 Sat by Pulse Oximetry 94 L 93 L 93 L 07/28/18 19:20 07/28/18 19:30 07/28/18 19:31 Temperature Pulse Rate 133 H 135 H 129 H Respiratory Rate 21 21 17 Blood Pressure 130/107 O2 Sat by Pulse Oximetry 93 L 95 92 L 07/28/18 19:40 07/28/18 19:50 Temperature Pulse Rate 122 H 118 H Respiratory Rate 27 H 20 Blood Pressure 130/107 O2 Sat by Pulse Oximetry 92 L 92 L Laboratory Results - last 24 hr 07/28/18 07/28/18 07/28/18 15:15 17:11 17:11 WBC 18.96 H RBC 6.58 H Hgb 19.6 H Hct 53.2 H MCV 80.9 L MCH 29.8 MCHC 36.8 RDW Std Deviation 13.3 Plt Count 228 MPV 11.7 H Immature Gran % (Auto) 0.3 Neut % (Auto) 76.2 H Lymph % (Auto) 13.0 L [place] % (Auto) 9.9 H Eos % (Auto) 0.4 Baso % (Auto) 0.2 Immature Gran # (Auto) 0.05 H Neut # (Auto) 14.44 H Lymph # (Auto) 2.47 [place] # (Auto) 1.88 H Eos # (Auto) 0.08 Baso # (Auto) 0.04 Sodium Potassium Chloride Carbon Dioxide Anion Gap BUN Creatinine Estimated GFR/1.73 m2 BUN/Creatinine Ratio Glucose POC Glucose 215 H Calculated Osmolality Calcium Total Bilirubin AST ALT Alkaline Phosphatase Creatine Kinase Troponin T < 0.010 Total Protein Albumin Globulin Albumin/Globulin Ratio Urine Source Urine Color Urine Turbidity Urine pH Ur Specific [place] Urine Protein Ur Glucose (Stick) Ur Ketones (Stick) Urine Blood Urine Nitrite Urine Bilirubin Urobilinogen Dipstick Urine Leukocytes Urine WBC (Auto) Urine RBC (Auto) U Epithel Cells (Auto) Urine Bacteria (Auto) 07/28/18 07/28/18 17:43 18:10 WBC RBC Hgb Hct MCV MCH MCHC RDW Std Deviation Plt Count MPV Immature Gran % (Auto) Neut % (Auto) Lymph % (Auto) [place] % (Auto) Eos % (Auto) Baso % (Auto) Immature Gran # (Auto) Neut # (Auto) Lymph # (Auto) [place] # (Auto) Eos # (Auto) Baso # (Auto) Sodium 136 Potassium 4.3 Chloride 99 Carbon Dioxide 21 L Anion Gap 16 BUN 33 H Creatinine 1.3 H Estimated GFR/1.73 m2 56 BUN/Creatinine Ratio 25 Glucose 160 H POC Glucose Calculated Osmolality 283 Calcium 9.7 Total Bilirubin 1.04 H AST 21 ALT 28 Alkaline Phosphatase 68 Creatine Kinase 98 Troponin T Total Protein 8.1 Albumin 4.5 Globulin 3.6 Albumin/Globulin Ratio 1.3 Urine Source CLEAN CATCH Urine Color YELLOW Urine Turbidity CLEAR Urine pH 5.0 Ur Specific [place] 1.021 Urine Protein NEGATIVE Ur Glucose (Stick) TRACE Ur Ketones (Stick) TRACE A Urine Blood TRACE A Urine Nitrite NEGATIVE Urine Bilirubin NEGATIVE Urobilinogen Dipstick NORMAL Urine Leukocytes NEGATIVE Urine WBC (Auto) <10 Urine RBC (Auto) <10 U Epithel Cells (Auto) <10 Urine Bacteria (Auto) NEGATIVE Orders Category Date Time Status Saline Loc NOW Care 07/28/18 15:57 Active CHEST-2 VIEWS [RAD] Stat Exams 07/28/18 15:[address] HEAD W/O CONTRAST [CT] Stat Exams 07/28/18 15:20 Completed CBC WITH DIFF [HEME] Stat Lab 07/28/18 17:11 Completed CK PROFILE [SP CHEM] Routine Lab 07/28/18 18:10 Completed COMPREHENSIVE METABOLIC PANEL [CHEM] Routine Lab 07/28/18 18:10 Completed TROPONIN T Stat Lab 07/28/18 17:11 Completed URINALYSIS W/POSS RFLX CULT [URINALYSIS] Stat Lab 07/28/18 17:43 Completed 0.9% Sodium Chloride Inj [Ns] 1,000 ml Med 07/28/18 15:58 Discontinued IV 999 mls/hr 0.9% Sodium Chloride Inj [Ns] 2,000 ml Med 07/28/18 19:07 Active IV 999 mls/hr Baclofen [Lioresal] Med 07/28/18 18:36 Discontinued 20 mg PO NOW ONE Lorazepam [Ativan] Med 07/28/18 15:59 Discontinued 0.5 mg IV NOW ONE Lorazepam [Ativan] Med 07/28/18 16:05 Discontinued 1 mg IM NOW ONE Lorazepam [Ativan] Med 07/28/18 19:18 Discontinued 1 mg IV NOW ONE Metoprolol [Lopressor] Med 07/28/18 20:02 Discontinued 2.5 mg IV NOW ONE EKG [EKG] Stat Ther 07/28/18 15:36 Ordered A/P: tachycardia. pt had stroke earlier this week, and still has generalized wekaness. he also has tremors of his left lower leg, elevated WBC. [facility] will admit pt Result Diagrams: 07/28/18 17:11 07/28/18 18:10 - EKG 1 Time of EKG reading by physician:: 15:34 EKG Read and Signed by:: John Melgar EKG Interpretation (*Must complete 3 of following elements*): Abnormal Rate: 136 Rhythm: Sinus tach w/ fusion complexes [place]: normal QRS: other (L anterior fascicular block) NV Interval: normal ST Wave: normal Comments: No STEMI. -Dr. Melgar - XRAY 1 XRAY Study: Chest Impression: Normal (COMMENT: There is no evidence of acute cardiac or pulmonary disease. There appears to be a minimal amount of fibrosis in the lingula or lateral anterior lower lobe on the left. This has not changed since 10/09/2017. IMPRESSION: Stable chest. Electronically signed by Ancelmo Dunn 07/28/2018 4:37 PM 07/28/18 [id number]) - CT/MRI 1 CT Study: Head Impression: Abnormal (FINDINGS: No parenchymal hemorrhage. No epidural or subdural hematoma. No subarachnoid hemorrhage. There is a small hypodense area in the left periventricular location measuring approximately 1.3 cm. No mass identified on this noncontrasted exam. No hydrocephalus. No sinus opacification. IMPRESSION: Small recent infarct seen on the recent MRI. This exam was performed using automated exposure control, adjustment of mA or kV according to patient size, and/or use of iterative reconstruction technique. Electronically signed by Sourav Godinez 07/28/2018 3:28 PM) - CONSULTS/PCP/HOSPITALIST Notification #1 *Consult/PCP/Hospitalist*: [email or web address] Time Discussed: 20:08 Consult Disposition: Admit Departure - Departure Date of Disposition Decision: 07/28/18 Time of Disposition Decision: 20:22 DIAGNOSIS: Tachycardia, Tremors of nervous system Disposition: ADMITTED INPATIENT 09 Certified Medical Emergency: Emergent Condition: Stable Additional Freetext Instructions: We have examined and treated you today on an emergency basis only. This was not a substitute for, or an effort to provide, complete medical care. In most cases, you must let your doctor check you again. Tell your doctor about any new or lasting problems. We cannot recognize and treat all injuries or illnesses in one Emergency Department visit. If you had special tests, such as X-rays or CT scans, will be reviewed by radiologist and will call you if there are any new suggestions Follow up with primary care provider in 1 to 2 days if no improvement. If you do not have a primary care provider, you need to choose one as soon as possible. Take medicines as prescribed. Monitor for any side effects or adverse events from medications. If any side effect, adverse event or rash develops, or if you suspect any other adverse reaction to the medication, then discontinue the m edication immediately and contact clinic /PCP or go to the nearest ER. Narcotic meds / sedative meds instruction - patent advised not to drive, operate any machinery or go into water after taking meds as it may impair mental ability to react to the situation in an appropriate manner. Continue other current medicines. Follow up with PCP within 24-48 hours, or sooner if symptoms worsen or fail to improve. Patient / guardian verbalizes understanding of treatment plan, medication, and side effects and agrees with treatment plan. Patient leaves ER in stable condition and ambulatory state. Return to ER as needed. Discharge instructions reviewed verbally and given to patient in written form. Follow up with primary care provider. Referrals and Follow-Ups: Shannon An CRNP [Primary Care Provider] - - Critical Care Note This patient required my direct & personal management of CC.: No Attestation - Physician/ JAMES Attestation Patient care was provided by Advanced Practice Provider:: No The physician spent face to face time with patient:: Yes Advanced Practice Provider documentation review:: Supervising physician onsite and consulted in the evaluation and care of this patient. The physician did have a face to face encounter with the patient. - NIH Stroke Scale NIH Type: Initial Evaluation Level of Consciousness: 0-Alert LOC Questions (ask month and age): 0-Answers Both Correctly LOC Commands (ask to open & close eyes;make a fist, let go): 0-Obeys Both Correctly Best Gaze (horizontal eye movement): 0-Normal Visual (use finger movement, counting or visual threat): 0-No Visual Loss Facial Palsy (show teeth or raise eyebrows & close eyes tght: 0-Symmetrical Movement Motor Function-left arm: 0-Normal Motor Function-right arm: 0-Normal Motor Function-left le-Normal Motor Function-right le-Normal Limb Ataxia([id number], or heel to barriga): 0-No Ataxia Sensory(pin prick to face,arms,trunk,legs-compare side/side): 0-No Ataxia Best Language(name item/read sentence.Ex-Down to Earth): 0-No Aphasia Dysarthria(Pt read words or say words Ex.Mama,Tip-Top,Thanks: 0-Normal Articulation Extinction and Inattention: 0-Normal NIH Total Score: 0 Modified Randall Score Criteria: 0-no symptoms Stroke tPA Guidelines - Inclusion Criteria for IV tPA 18 years old or older: Yes Ischemic stroke with measurable deficit: No Onset <3 hours ago *OR* 3-4.5 hours ago: No - Exclusion Criteria for IV tPA Evidence of intracranial hemorrhage on CT: No Presentation suggest SAH: No CT reveals defined area of hypodensity: No Evidence of AVM, neoplasm, aneurysm: No Seizure at stroke onset: No Active internal bleeding or acute trauma: No Platelet Count Less Than 100,000: No Heparin Within Last 48 HRS (PTT >Lab normal limits): No INR > 1.7 (warfarin use): No Use IIB/IIIA inhibitors within 24 hours: No Serious Head Trauma Within Last 3 Months: No Arterial Puncture Within Last 7 Days: No Lumbar Puncture Within Last 7 Days: No Repeated systolic Blood Pressure >185 or Diastolic >110: No - Additional Exclusion Criteria for IV tPA Currently on Coumadin: No Patient older than 80: No Prior stroke and diabetes: Yes Baseline NIHSS score > 25: No - Relative Contraindications to IV tPA CT reveals extensive area of infarct (>1/3 MCA territory): No Minor or rapidly improving stroke symptoms: No Major Surgery or Serious Trauma In Previous 14 Days: No AMI within 3 months: No Gastrointestinal or Urinary Tract hemorrhage in Past 21 Days: No Post - AMI pericarditis: No Blood Glucose Less Than 50 mg/dl or Greater Than 400 mg/dl: No - Consultation Reason not a candidate:: No current stroke-like symptoms. Head CT unchanged from prior (negative). This chart was documented by the indicated scribe, (Vanessa Stahl Scribe) and accurately reflects the services I performed and decisions made by Deni balderas Christophe J., MD, as attested by the provider's signature.
[2018-07-28] MEDS ORDERED: LIORESAL PO ONE (18:36)
[2018-07-28 18:58] LABS: ALB/GLOB RATIO 1.3; ALBUMIN 4.5 g/dL (3.5-5.0); CALCIUM 9.7 mg/dL (8.8-10.2); CREATININE 1.3 mg/dL (0.7-1.2); POTASSIUM 4.3 mmol/L (3.5-5.1); TOTAL BILIRUBIN 1.04 mg/dL (0.20-1.00); TOTAL PROTEIN 8.1 g/dL (6.3-8.3)
[2018-07-28] MEDS ORDERED: NS 2,000 ML IV ONE (19:07)
[2018-07-28] MEDS ORDERED: LOPRESSOR IV ONE (20:02)
[2018-07-28 21:09] LABS: MAGNESIUM 2.1 mg/dL (1.5-2.7); PHOSPHORUS 3.7 mg/dL (2.7-4.5)
--- NOTE | 2018-07-28 21:23 | Diag Imaging Result Doc PS360 ---
EXAM: CT THORAX W/O CONTRAST 07/28/2018 HISTORY: cough wbc aspiration TECHNIQUE: This exam was performed using automated exposure control, adjustment of mA or kV according to patient size, and/or use of iterative reconstruction technique. COMMENT: There are no previous studies available for comparison. There are no abnormal fluid collections. There is no evidence of acute pulmonary parenchymal disease. There is no evidence of acute disease in the visualized portion of the abdomen. There is no evidence of adenopathy. The regional skeleton appears to be intact. IMPRESSION: No evidence of acute disease. Electronically signed by Ancelmo Dunn 07/28/2018 9:20 PM
--- NOTE | 2018-07-28 21:27 | Diag Imaging Result Doc PS360 ---
EXAM: CT LUMBAR SPINE W/CONTRAST 07/28/2018 HISTORY: LLE weakness spasm wbc ?abscess TECHNIQUE: This exam was performed using automated exposure control, adjustment of mA or kV according to patient size, and/or use of iterative reconstruction technique. COMMENT: There are no previous studies. There is vacuum disc phenomenon present at the L1-2 level. There is no evidence of fracture or subluxation. There are cysts in the right kidney. At the T12-L1 level there is no evidence of spinal or foraminal stenosis. At L1-2 there is disc bulge without evidence of spinal or foraminal stenosis. At L2-3 level there is marked disc bulge with a mild degree of spinal stenosis. The foramina are patent bilaterally. At L3-4 there is disc bulge without evidence of significant spinal or foraminal stenosis. At L4-5 there is disc bulge without evidence of spinal or foraminal stenosis. At L5-S1 there is no evidence of spinal or foraminal stenosis. IMPRESSION: Degenerative disc disease with mild spinal stenosis at L2-3. Electronically signed by Ancelmo Dunn 07/28/2018 9:25 PM
[2018-07-28] MEDS ORDERED: TYLENOL PO PRN (22:04)
--- NOTE | 2018-07-28 22:52 | HISTORY AND PHYSICAL ---
PRIMARY PHYSICIANS: Patient of JULIAN Hampton. REASON FOR ADMISSION: Left lower extremity cramping for the last 24 hours. Also complains of generalized weakness. Mr. Tim Navarro is a 62-year-old man, who was recently discharged from our facility following a CVA in the left parietal area. He says since he has gone home, which was 3 days ago, he has gotten progressively weak to the point that he is getting lightheaded when he tries to stand, but what has compounded issues is that he has developed intense left lower extremity spasms which have been increasing in frequency to the point that they have been recurring every 10 to 15 minutes. When they come on, they last about a minute to 2 minutes. He also reports of urge incontinence since the stroke. He reports following the stroke, he has had weakness on the left side which has not progressed. He also had slurred speech which has not worsened. He states that he has been having occasional choking when he eats and occasional coughing, but nothing severe. He denies any fever, chills, shortness of breath. No cardiorespiratory complaints. Otherwise, no anginal type symptoms. No other GI complaints. He has a long back pain history, but this has not worsened. He denies any fecal incontinence. No polyuria, polydipsia. No new onset rash or arthralgia. REVIEW OF SYSTEMS: Twelve system review was done. Positive findings as per HPI. ALLERGIES: Allergies to [place] which makes him confused. HOME MEDICATION LIST: He is on meclizine 25 mg q.6. Cymbalta 60 mg daily, Januvia 100 mg daily, Prinzide 20/12.5 mg daily. Amaryl 4 mg daily. Aspirin 81 mg daily. SOCIAL HISTORY: Currently lives with his daughter. Does not smoke, drink, or use drugs. Reports that he has not had any home health when he was discharged. FAMILY HISTORY: Notable for type 2 diabetes, heart disease. SURGICAL HISTORY: Nil. LABORATORY WORK: White count 19,000, hemoglobin and hematocrit 19 and 50, platelets 228 with 72% neutrophils. BUN is 33, creatinine 1.3, which represents an increase from 14 and 1.0. Glucose 160, troponins negative. Lactate pending. CK is 98. Urinalysis shows specific gravity 1.021, ketones trace, trace blood. Head CT small recent infarcts seen on MRI. Chest x-ray showed questionable small amount of fibrosis in the lingula or left anterior lobe of the lung. EKG pending. Has not been performed yet. PHYSICAL EXAMINATION: VITAL SIGNS: Blood pressure 130/107, respiratory rate is 20, heart rate 118, temperature is 98. When he has the spasms, heart rate goes up to the 130s-140s. GENERAL: man who is in moderate distress, especially when he has any spasm. He is alert and oriented to person, place, and time with normal mood and affect. HEENT: Head is normocephalic, atraumatic. Eyes: GABBY, EOMI. ENT exam is grossly normal. No central cyanosis. No oropharyngeal exudates. NEUROLOGIC: Cranial nerves 2-12 appear to be intact other than his slurred speech. 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 His power in the left lower extremities are rated about 3-4/5. He has very brisk deep tendon reflexes in his lower extremities, more on the left compared to the right with some mild degree of clonus. No sensory deficits appreciated. Otherwise, he is anicteric and not pale. NECK: Supple. No JVD or carotid bruit. No thyromegaly. CHEST: Clear when auscultated. Good air entry, both lung garcia. CARDIOVASCULAR: First and second heart sounds heard. No gallops, rubs. Rhythm is regular. ABDOMEN: Full, soft, nontender. No megaly. Bowel sounds are normal. RECTAL: Deferred at this time. EXTREMITIES: The patient has good distal pulses which are regular and symmetrical, but tachycardic. No edema, clubbing or peripheral cyanosis. SKIN: Intact. No breakdown, lesion, erythema. MUSCULOSKELETAL: Exam is grossly normal. ASSESSMENT: 1. Leukocytosis with tachycardia? Early sepsis? Reactive leukocytosis from spasm. 2. 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 Complicated with intermittent spasms. 3. Type 2 diabetes. 4. Hypertension. 5. Diabetic nephropathy. PLAN: The present issue for this patient is spasms. This could be as a result of complication of his recent CVA. The patient does have urge incontinence which also could be a complication of recent CVA. However, patient does admit to chronic low back pain, but this has not worsened. However, I have taken the liberty of ordering lumbar spine CT scan with contrast to rule out an epidural abscess which is unlikely. However, this would be best eliminated with an MRI which is not available at this time. We will treat patient symptomatically with baclofen and ice. Check magnesium and phosphorus and correct if these are deficient. The patient's leukocytosis and tachycardia as I stated, could be reactive in nature without any infective source. For now, due to the fact the patient complained of aspiration and some questionable fibrotic changes with x-ray, I have ordered a noncontrast CT thorax. Hold off on antibiotics for now pending the CT scan. If it is positive then we will proceed with treatment for aspiration. If it is negative, we will of course follow CBC in the morning. The patient is clinically dehydrated and his blood work confirms this. We will continue to hydrate patient and hold off on diuretics, i.e. hydrochlorothiazide for the next 24 hours. Will also start patient on statins for now for when the spasms resolve to address secondary CVA prophylaxis. cc: Terrie Pickering MD
[2018-07-28] MEDS: POTASSIUM CHLORIDE 10 MEQ in NS 1,000 ML IV SCH (23:33)
[2018-07-28] MEDS: HUMALOG SUBQ SCH (23:40)
[2018-07-28] MEDS: LOVENOX SUBQ SCH (23:40)
[2018-07-29] MEDS: POTASSIUM CHLORIDE 10 MEQ in NS 1,000 ML IV SCH (05:51)
[2018-07-29] MEDS: HUMALOG SUBQ SCH ×4 (06:15→20:19)
[2018-07-29] MEDS: NS 1,000 ML IV SCH ×2 (08:00→20:19)
[2018-07-29] MEDS: AMARYL PO SCH (08:02)
[2018-07-29] MEDS: LIORESAL PO SCH ×3 (08:02→18:30)
[2018-07-29] MEDS: PRINZIDE 20/12.5MG PO SCH (08:03)
[2018-07-29] MEDS: CYMBALTA PO SCH (08:04)
[2018-07-29] MEDS: ASPIRIN EC PO SCH (08:04)
[2018-07-29 08:09] LABS: BASO# 0.02 X1000 (0.0-0.2); BASO% 0.1 % (0.0-0.8); EOS# 0.09 X1000 (0.0-0.7); EOS% 0.6 % (0.0-10.0); HEMATOCRIT 46.4 % (42.0-52.0); HEMOGLOBIN 16.6 g/dL (14.0-18.0); IMM GRAN# 0.03 X1000 (0.0-0.04); IMM GRAN% 0.2 % (0.0-0.5); LYMPH# 2.05 X1000 (1.2-3.4); LYMPH% 14.5 % (20.5-51.1); MCHC 35.8 g/dL (33-37); MCV 83.9 FL (81-99); MONO# 1.65 X1000 (0.11-0.59); MONO% 11.7 % (1.7-9.3); MPV 11.6 FL (7.4-10.4); NEUT# 10.25 X1000 (1.4-6.5); NEUT% 72.9 % (42.2-75.2); PLT 178 X1000 (130-400); RBC 5.53 XMIL (4.7-6.1); RDW 13.1 % (11.5-14.5); WBC 14.09 X1000 (4.8-10.8)
[2018-07-29 08:39] LABS: AGAP 10; BUN 16 mg/dL (8-22); CALCIUM 8.5 mg/dL (8.8-10.2); CHLORIDE 103 mmol/L (98-107); COSMO 279; CREATININE 1.1 mg/dL (0.7-1.2); ESTIMATED GFR > 60; GLUCOSE 132 mg/dL (70-104); POTASSIUM 4.1 mmol/L (3.5-5.1); SODIUM 138 mmol/L (136-145); TCO2 25 mmol/L (25-35)
[2018-07-29] MEDS: LOVENOX SUBQ SCH (20:19)
[2018-07-30] MEDS: FLEXERIL PO PRN ×2 (03:00→22:00)
[2018-07-30] MEDS: HUMALOG SUBQ SCH ×4 (06:16→22:10)
[2018-07-30 07:28] LABS: HEMATOCRIT 44.3 % (42.0-52.0); HEMOGLOBIN 15.8 g/dL (14.0-18.0); MCH 30.2 PG (27-31); MCHC 35.7 g/dL (33-37); MCV 84.7 FL (81-99); MPV 11.7 FL (7.4-10.4); RBC 5.23 XMIL (4.7-6.1); RDW 12.9 % (11.5-14.5); WBC 12.37 X1000 (4.8-10.8)
[2018-07-30 07:43] LABS: AGAP 13; BUN 9 mg/dL (8-22); CALCIUM 8.3 mg/dL (8.8-10.2); CHLORIDE 101 mmol/L (98-107); COSMO 273; CREATININE 0.8 mg/dL (0.7-1.2); ESTIMATED GFR > 60; GLUCOSE 108 mg/dL (70-104); POTASSIUM 3.6 mmol/L (3.5-5.1); SODIUM 137 mmol/L (136-145); TCO2 23 mmol/L (25-35)
[2018-07-30] MEDS: ASPIRIN EC PO SCH (08:23)
[2018-07-30] MEDS: PRINZIDE 20/12.5MG PO SCH (08:23)
[2018-07-30] MEDS: AMARYL PO SCH (08:23)
[2018-07-30] MEDS: DILAUDID IV PRN ×3 (08:24→22:07)
[2018-07-30] MEDS: CYMBALTA PO SCH (08:24)
--- NOTE | 2018-07-30 08:30 | PROGRESS NOTE ---
DATE: 07/29/2018 SUBJECTIVE: The patient is resting comfortably in bed. He has no complaints at this time. OBJECTIVE: Vital Signs: Temperature 98.1 degrees, blood pressure 129/90, heart rate 103, respirations 19, O2 saturation 95% on room air. General: This is an elderly male, lying in bed in no acute distress. Heart: S1, S2 normal. Regular rate and rhythm. Lungs: Equal air entry bilaterally. No crackles. No rales. Abdomen: Positive bowel sounds. Soft, nontender, nondistended. Extremities: No edema, no cyanosis. Neurologic: The patient is awake and alert. LABORATORY DATA: White blood cell count 14, hemoglobin 16, hematocrit 46, platelets 178,000. BUN 15, creatinine 1.1. ASSESSMENT AND PLAN: 1. Recent left parietal infarct. Will continue with aspirin and Lipitor. Will also consult Physical Therapy and Occupational Therapy. 2. Diabetes mellitus type 2. Continue on Amaryl and sliding scale insulin. 3. Hypertension. Continue on the current antihypertensive regimen. 4. Muscle spasms. Continue on prn flexeril 5. Disposition. Will consult with Furniture And Bedding Inspector for discharge planning. cc: Yadi Stringer MD MTDD
[2018-07-30] MEDS: ZOFRAN IV PRN ×3 (08:35→22:07)
[2018-07-30] MEDS: NS 1,000 ML IV SCH (09:49)
[2018-07-30] MEDS: LIORESAL PO SCH ×2 (13:17→17:15)
--- NOTE | 2018-07-30 14:48 | PROGRESS NOTE ---
DATE: 07/30/2018 SUBJECTIVE: The patient was complaining of severe left leg cramping. He received Dilaudid this morning, and he states that his pain is much better. OBJECTIVE: Vital Signs: Temperature 98.2 degrees, blood pressure 128/83, heart rate 105, respirations 20, O2 saturation 96% on room air. General: This is a chronically ill-appearing, elderly male, sitting up in bed in no acute distress. Heart: S1, S2 normal. Regular rate and rhythm. Lungs: Clear to auscultation bilaterally. No wheezing. No rales. No rhonchi. Abdomen: Positive bowel sounds. Soft, nontender, nondistended. Extremities: No edema. No cyanosis. No calf tenderness. Neurologic: The patient is alert and oriented x3. He does have some aphasia. LABORATORY DATA: White blood cell count 12, hemoglobin 15, hematocrit 44, platelets 150,000. Sodium 137, potassium 3.6, chloride 101, CO2 of 23, BUN 9, creatinine 0.8, glucose 108. ASSESSMENT AND PLAN: 1. Left leg muscle spasms. This appeared to improve once the patient received a dose of Dilaudid. Will also add baclofen and monitor the patient's response. 2. Recent left parietal infarction. Continue with aspirin and Lipitor. Physical Therapy and Occupational Therapy have been consulted. 3. Diabetes mellitus type 2. Continue on Amaryl and sliding scale insulin. 4. Hypertension. Controlled. 5. Deep vein thrombosis prophylaxis. Continue on Lovenox. 6. Disposition. Will consult with Manager Scheduling for discharge planning. cc: Yadi Stringer MD MTDD
[2018-07-30] MEDS: LIPITOR PO SCH (20:26)
[2018-07-30] MEDS: LOVENOX SUBQ SCH (20:26)
[2018-07-31] MEDS: HUMALOG SUBQ SCH ×4 (06:20→20:25)
[2018-07-31 07:09] LABS: HEMOGLOBIN 15.3 g/dL (14.0-18.0); MCH 30.5 PG (27-31); MCHC 35.6 g/dL (33-37); MCV 85.7 FL (81-99); MPV 11.4 FL (7.4-10.4); RBC 5.02 XMIL (4.7-6.1); WBC 8.83 X1000 (4.8-10.8)
[2018-07-31 07:37] LABS: AGAP 8; BUN 9 mg/dL (8-22); CALCIUM 8.8 mg/dL (8.8-10.2); CHLORIDE 100 mmol/L (98-107); COSMO 271; ESTIMATED GFR > 60; GLUCOSE 101 mg/dL (70-104); POTASSIUM 3.7 mmol/L (3.5-5.1); SODIUM 136 mmol/L (136-145); TCO2 28 mmol/L (25-35)
--- NOTE | 2018-07-31 08:00 | EKG Report ---
Test Performed on : 07/28/2018 3:34:33 PM Test Reason : STROKE LIKE SYMPTOMS / TACHYCARDIA Blood Pressure : / mmHG Vent. Rate : 136 BPM Atrial Rate : 136 BPM P-R Int : 132 ms QRS Dur : 084 ms QT Int : 296 ms P-R-T Axes : 070 -73 072 degrees QTc Int : 445 ms Sinus tachycardia. with fusion complexes Left anterior fascicular block Abnormal ECG When compared with ECG of 23-JUL-2018 17:47, (Unconfirmed) fusion complexes are now present premature ventricular complexes. are no longer present Vent. rate has increased BY 54 BPM Criteria for Inferior infarct are no longer present Unconfirmed Result
[2018-07-31] MEDS: CYMBALTA PO SCH (09:16)
[2018-07-31] MEDS: AMARYL PO SCH (09:17)
[2018-07-31] MEDS: LIORESAL PO SCH ×3 (09:17→17:29)
[2018-07-31] MEDS: PRINZIDE 20/12.5MG PO SCH (09:17)
[2018-07-31] MEDS: ASPIRIN EC PO SCH (09:18)
[2018-07-31] MEDS ORDERED: DILAUDID IV PRN (10:22)
--- NOTE | 2018-07-31 10:44 | Diag Imaging Result Doc PS360 ---
EXAM: ABDOMEN FLAT/UPRIGHT HISTORY: constipation TECHNIQUE: Flat and upright, three views COMPARISON: None. FINDINGS: No free air beneath the diaphragm. No bowel obstruction. There is a small amount stool throughout the colon. No organomegaly. No foreign body. No abnormal calcifications. There are multiple pelvic phleboliths. IMPRESSION: Minimal constipation. Electronically signed by Sourav Godinez 07/31/2018 10:41 AM
[2018-07-31] MEDS: MIRALAX PO SCH (11:50)
--- NOTE | 2018-07-31 14:14 | PROGRESS NOTE ---
DATE: 07/31/2018 SUBJECTIVE: The patient states that the muscle cramping in his left leg has resolved. He is requesting placement for inpatient rehab. He does also complain of constipation. OBJECTIVE: Vital Signs: Temperature 97.4 degrees, blood pressure 141/77, heart rate 91, respirations 18, O2 saturation is 94% on room air. General: This is an elderly male lying in bed, in no acute distress. Heart: S1, S2 normal. Regular rate and rhythm. Lungs: Equal air entry bilaterally. No crackles. No rales. Abdomen: Positive bowel sounds. Soft, nontender, nondistended. Extremities: No edema. No cyanosis. Neurologic: The patient is alert and oriented x3. Labs: Reviewed. ASSESSMENT AND PLAN: 1. Left leg muscle spasms. Improved. Continue on baclofen. 2. Constipation. We will start the patient on scheduled laxative therapy. 3. Recent left parietal infarction. Continue on aspirin and Lipitor. Physical therapy and occupational therapy have been consulted. 4. Diabetes mellitus type 2. Continue on Amaryl and sliding scale insulin. 5. Hypertension. Controlled. 6. Deep vein thrombosis prophylaxis. Continue on Lovenox. 7. Disposition. product manager financial services has been consulted for inpatient rehab placement for the patient. cc: Yadi Stringer MD MTDD
[2018-07-31] MEDS: LIPITOR PO SCH (20:25)
[2018-07-31] MEDS: LACTULOSE PO SCH (20:25)
[2018-07-31] MEDS: LOVENOX SUBQ SCH (20:25)
[2018-07-31] MEDS: DULCOLAX PR SCH (20:26)
[2018-08-01] MEDS: HUMALOG SUBQ SCH ×4 (07:05→21:39)
[2018-08-01] MEDS: LIORESAL PO SCH ×3 (08:47→18:05)
[2018-08-01] MEDS: ASPIRIN EC PO SCH (08:47)
[2018-08-01] MEDS: PRINZIDE 20/12.5MG PO SCH (08:47)
[2018-08-01] MEDS: MIRALAX PO SCH (08:47)
[2018-08-01] MEDS: CYMBALTA PO SCH (08:47)
[2018-08-01] MEDS: AMARYL PO SCH (08:48)
[2018-08-01] MEDS: LACTULOSE PO SCH ×2 (08:48→20:02)
--- NOTE | 2018-08-01 18:20 | PROGRESS NOTE ---
DATE: 08/01/2018 SUBJECTIVE: Patient resting in bed. Has no new complaints today. OBJECTIVE: Vital Signs: Temperature is 98.7 degrees, pulse 87, respiratory rate 18, blood pressure is 124/96, O2 saturation is 94%. HEENT: Atraumatic, normocephalic. Cardiovascular: S1, S2. Respiratory: Has evidence of good entry bilaterally. Abdomen: Soft, nontender. No masses felt. Extremities: No evidence of edema. Central Nervous System: No obvious focal deficits noted. ASSESSMENT AND PLAN: 1. Recent cerebrovascular accident. Continue patient on aspirin as well as statin. Continue physical therapy as well as occupational therapy. 2. Diabetes mellitus. Continue blood sugar monitoring as well as sliding scale insulin. 3. Hypertension, controlled. 4. Disposition. Rehabilitation placement pending. Property Consultant already consulted. 5. Deep venous thrombosis prophylaxis. Lovenox. cc: Pasha Arnett MD MTDD
[2018-08-01] MEDS: LIPITOR PO SCH (20:02)
[2018-08-01] MEDS: LOVENOX SUBQ SCH (20:02)
[2018-08-01] MEDS: DULCOLAX PR SCH (20:02)
[2018-08-02] MEDS: HUMALOG SUBQ SCH ×3 (06:08→16:18)
[2018-08-02] MEDS: MIRALAX PO SCH (08:05)
[2018-08-02] MEDS: LACTULOSE PO SCH (08:05)
[2018-08-02] MEDS: LIORESAL PO SCH ×2 (08:05→12:27)
[2018-08-02] MEDS: AMARYL PO SCH (08:05)
[2018-08-02] MEDS: PRINZIDE 20/12.5MG PO SCH (08:05)
[2018-08-02] MEDS: CYMBALTA PO SCH (08:05)
[2018-08-02] MEDS: ASPIRIN EC PO SCH (08:05)
[2018-08-02 13:15] VITALS: BP 143/93
--- NOTE | 2018-08-02 13:42 | PROGRESS NOTE ---
DATE: 08/02/2018 SUBJECTIVE: Patient resting on bed. No new complaints today. OBJECTIVE: Vital signs: Temperature 98 degrees, pulse 110, respiratory rate 16, blood pressure 143/93, oxygen 100%. HEENT: Atraumatic, normocephalic. Cardiovascular: S1, S2. Respiratory: Has evidence of good entry bilaterally. Abdomen: Soft, nontender. No masses felt. Extremities: No evidence of edema. Central nervous system: No obvious focal deficits noted. LABS: Blood glucose is 220. ASSESSMENT AND PLAN: 1. Recent cerebrovascular accident. Continue aspirin as well as statin. Continue physical therapy and occupational therapy. 2. Diabetes mellitus. Continue blood sugar management as well as sliding scale insulin. 3. Hypertension, controlled. DISPOSITION: 1. Awaiting rehab placement. 2. Deep vein thrombosis prophylaxis, Lovenox. cc: Pasha Arnett MD
--- NOTE | 2018-08-03 11:12 | DISCHARGE SUMMARY ---
ADMISSION DATE: 07/28/2018 DISCHARGE DATE: 08/02/2018 PRINCIPAL DIAGNOSIS: Recent cerebrovascular accident. SECONDARY DIAGNOSES: 1. Diabetes mellitus. 2. Hypertension. 3. Muscle spasm. 4. Constipation. DISCHARGE MEDICATIONS: Include the followin. Atorvastatin 40 mg p.o. daily. 2. Duloxetine 60 mg p.o. daily. 3. Glimepiride 4 mg p.o. daily. 4. Lisinopril HCT 20/12.5 p.o. daily. 5. Meclizine 25 mg every 6 hours as needed. 6. Januvia 1 tablet daily. 7. Aspirin 81 mg p.o. daily. 8. Neurontin 400 mg p.o. twice a day. CONSULTATIONS DONE DURING THIS HOSPITAL STAY: None. PROCEDURES DONE DURING THIS HOSPITAL STAY: 1. Chest CT 07/28/2018. 2. Lumbar spine CT 07/28/2018. 3. Head CT 07/28/2018. HOSPITAL COURSE: Mr. Tim Ross is a 59-year-old male with recent history of CVA admitted to the hospital for probable sepsis. His white count was noted to be high. Blood cultures have returned back negative. Over time, the patient's white count went down. During the course of the hospital stay, he was managed conservatively for constipation as well as muscle spasm. At this time, patient has done well. He is stable. He can now be discharged home. DISCHARGE EXAMINATION: Vital Signs: His vital signs during my evaluation today, temperature is 98, pulse 110, respiratory rate 16, blood pressure 140/93, and oxygen saturation is 100%. HEENT: Atraumatic, normocephalic. Cardiovascular: S1, S2. Respiratory: There is evidence of good air entry bilaterally. Abdomen: Soft, nontender. No masses felt. Extremities: No evidence of edema. Central nervous system: No obvious focal deficit noted. PLAN: Discharge home today with home health services. Apparently, the patient's insurance denied him inpatient rehab. cc: MD HEIDE Gómez
== END 2018-08-02 18:25 | disposition home health service (06) | DRG 57 ==
LOC: ED 15:08 → SUATTDRO 22:15 → 3N 22:15
PROVIDERS: ATTEND Internal Medicine
CPT/HCPCS: 70450; 71020; 71046; 71250; 72132; 74019; 74020; 80048; 80053; 81001; 82550; 82948; 83605; 83735; 84100; 84443; 84484; 85025; 85027; 87040; 93005; 96361; 96372; 96374; 96375; 97110; 97162; 97165; 97530; 97535; 99285; A9270; J1170; J1650; J1815; J2060; J2405; J3480; J7030; Q9967; XXXXX